=== PATIENT | male | born 1950 | race Two or more races ===

== ENCOUNTER 2023-06-11 08:21 | Emergency (ER) | payer OTHER ==
[~2023-06-11] VITALS: Ht 175.3 cm; Wt 120.1 kg
[~2023-06-11 08:21] MED LIST: GLUC-241; NAPR-223; NOR10T; ZALE5CAP
[2023-06-11 08:34] VITALS: BP 124/76; PULSE 80; RESP 18
[2023-06-11] MEDS ORDERED: CEPH500C PO (09:03)
[2023-06-11 09:18] VITALS: O2SAT 97
== END 2023-06-11 09:20 | disposition home or self-care (01) ==
LOC: ER 08:21
DX: L08.82 Omphalitis not of newborn (principal); I10 Essential (primary) hypertension; Z79.899 Other long term (current) drug therapy